=== PATIENT | male | born 1955 | race Caucasian/White ===

== ENCOUNTER 2017-05-10 20:10 | Inpatient (IN) | payer MEDICARE ==
[~2017-05-10] VITALS: Ht 167.6 cm; Wt 76.6 kg
--- NOTE | ~2017-05-10 | OP ---
PATIENT NAME: MEHUL AZEVEDO MEDICAL RECORD: [id number] :59 LOCATION:D.M2 D.2122 ADMISSION DATE:05/10/17 SURGEON: ALFA PLUNKETT MD DATE OF OPERATION: 05/13/2017 PROCEDURES: 1. PTCA stent LAD. 2. Intravascular ultrasound of the LAD. 3. Left heart catheterization. 4. Selective coronary angiography. 5. Left ventriculogram. INDICATION: Non-Q-wave myocardial infarction, angina. PROCEDURE IN DETAIL: After informed consent was obtained and after detailed explanation of risks, benefits as well as alternative therapies, the patient elected to proceed with angiogram and angioplasty. The right femoral area was prepped and draped in normal sterile fashion. The right femoral artery was cannulated via modified Seldinger technique with placement of 6-Portuguese sheath. All catheters exchanged through this sheath. FINDINGS: The left ventriculogram was performed in standard 30-degree DENIS view, reveals good cardiac wall motion throughout all segments. Overall ejection fraction estimated at 55%. SELECTIVE CORONARY ANGIOGRAPHY: 1. Left main showed no significant angiographic disease. 2. Left anterior descending has 65% to 70% stenosis confirmed by intravascular ultrasound. 3. The left circumflex has moderate irregularities, but no flow-limiting stenosis. 4. The right coronary has a 70% to 80% stenosis in the distal vessel. PTCA STENT OF THE LAD: The stent used is a 3.5 x 18 mm Integrity. Result was 0% residual stenosis. OVERALL IMPRESSION: Successful percutaneous transluminal coronary angioplasty stent of the left anterior descending going from 65% to 70% initial stenosis to 0% residual stenosis. Plan for PTCA stent of the RCA in the near future. TRANSINT:[id number] Voice Confirmation ID: [id number] DOCUMENT ID: [id number] ALFA PLUNKETT MD CC: [id number] DICTATION DATE: 05/13/1724 SUPERINTENDENT LAUNDRY: 05/13/17 1144 ADM IN [id number] [place] [address]
--- NOTE | ~2017-05-10 | HEMODYNAMI ---
PATIENT:MEHUL AZEVEDO MEDICAL RECORD: [id number] : 59 [id number] ADMISSION DATE: 05/10/17 Generatedon:05/13/20179:27 Patient name: MEHUL AZEVEDO Patient #: [id number] SSN: : 1955 Date of study: 05/13/2017 Page: Of Hemodynamic Procedure Report Patient Data Patient Demographics Procedure consent was obtained First Name: MEHUL Gender: Male Last Name: JOLLY : 1955 [facility] Initial: POLA Age: 62 year(s) Patient #: [id number] Race: Unknown Additional ID: [id number] Contact details Address: [address] [place] [address] State: [place] City: [facility] Zip code: [address] Admission Admission Data Admission Date: 05/10/2017 Admission Time: 23:05 Room #: 2122 Lab Results Lab Result Date: 05/13/2017 Lab Result Time: 0:00 Biochemistry Name Units Result Min Max BUN mg/dl 40 --(----)-* 7 18 Creatinine mg/dl 5.7 --(----)-* 0.6 1.3 CBC Name Units Result Min Max Hemoglobin g/dl 9 *-(----)-- 13.5 17.5 Procedure Procedure Types Cath Procedure Diagnostic Procedure [facility] w/Coronaries FFR/IVUS Intra-Coronary IVUS Initial PCI Procedure Coronary Stent Initial Miscellaneous Procedures Moderate Sedation up to 30 minutes Peripheral Cath Diagnostic Procedure Cath Peripheral Mlhbl-Bcbkjfw-Aik-Off Procedure Description Procedure Date Procedure Date: 05/13/2017 Procedure Start Time: 9:04 Procedure End Time: 9:23 Procedure Staff Name Function Freddy Tobar MD Performing Physician Allyson Chavez RT Scrub Román Pierre RN Nurse Latia Avelar RT Monitor Procedure Data Cath Procedure Fluoroscopy Diagnostic fluoroscopy Total fluoroscopy Time: 3.1 time: 3.1 min min Diagnostic fluoroscopy Total fluoroscopy dose: 659 dose: 659 mGy mGy Contrast Material Contrast Material Type Amount (ml) Isovue 300 115 Entry Location Entry Primary Successful Side Size Upsize Upsize Entry Closure Succes sful Closure Location (Fr) 1 (Fr) 2 (Fr) Remarks Device Remarks Femoral Right 5 Fr 6 Fr Exoseal artery Short Estimated blood loss: 5 ml Diagnostic catheters Device Type Used For End Catheter Placement Cordis 5Fr 3DRC Catheter Multi-vessel (MP) Angiography Cordis 5Fr JL 4.0 Left Coronary Catheter (MP) Angiography Cordis 5Fr Pigtail LV Angiography Catheter (MP) Procedure Complications No complications Procedure Medications Medication Administration Route Dosage Oxygen NC 2 l/min Lidocaine 2% added to field 20 Heparin Flush Bag added to field 2 bags (1000units/500ml NS) 0.9% NaCl I.V. Versed I.V. 1 mg Fentanyl I.V. 50 mcg Heparin Bolus I.V. 4000 units Integrilin (Bolus I.V. 6.8 ml 2mg/ml) Versed I.V. 1 mg Fentanyl I.V. 50 mcg Plavix P.O. 600 mg Hemodynamics Rest HGB: 9 (g/dl) Heart Rate: 61 (bpm) Snapshots Pre Cath Intra NCS Post Cath Vital Signs Time Heart Resp SPO2 NIBP (mmHg) Rhythm Pain Sedation Rate (ipm) (%) Status Level (bpm) 8:38:42 60 14 96 129/108(120) NSR 0 (11) 10(A) , No pain 8:43:41 58 14 100 Measuring NSR 0 (11) 10(A) , No pain 8:43:47 79 15 99 161/141(142) NSR 0 (11) 10(A) , No pain 8:48:42 60 13 98 Disturbed NSR 0 (11) 10(A) , No pain 8:58:50 62 12 99 142/98(0) NSR 0 (11) 10(A) , No pain 9:01:11 59 18 99 Disturbed NSR 0 (11) 9(A) , No pain 9:05:30 57 17 98 124/88(105) NSR 0 (11) 9(A) , No pain 9:09:52 67 14 99 106/52(58) NSR 0 (11) 9(A) , No pain 9:14:51 62 16 97 148/67(0) NSR 0 (11) 9(A) , No pain 9:16:15 64 15 98 153/69(0) NSR 0 (11) 10(A) , No pain 9:22:30 63 16 98 135/66(91) NSR 0 (11) 10(A) , No pain Medications Time Medication Route Dose Verified Delivered Reason Notes Effectiveness by by 8:45:28 Oxygen NC 2 Freddy France used for l/min Amadou Pierre RN procedure 8:45:35 Lidocaine 2% added 20ml Freddy Hayes for local to vial Amadou Tobar MD anesthetic field 8:45:41 Heparin Flush added 2 Freddy Freddy used for Bag to bags Amadou Tobar MD procedure (1000units/500ml field NS) 8:45:50 0.9% NaCl I.V. kvo Freddy France Per physician ml/hr Amadou Pierre RN 8:55:47 Versed I.V. 1 mg Freddy France for sedation Amadou Pierre RN 8:55:54 Fentanyl I.V. 50 Freddy France for sedation mcg Amadou Pierre RN 9:02:32 Versed I.V. 1 mg Freddy France for sedation Amadou Pierre RN 9:02:35 Fentanyl I.V. 50 Freddy France for sedation mcg Amadou Pierre RN 9:11:02 Heparin Bolus I.V. 4000 Freddy France for verifie d units Amadou Pierre RN anticoagulation with dr tobar 9:13:12 Integrilin I.V. 6.8 Freddy France for wasted (Bolus 2mg/ml) ml Amadou Pierre RN antiplatelet 3.2 ml therapy of vial 9:23:28 Plavix P.O. 600 Freddy France for mg Amadou Pierre RN antiplatelet therapy Procedure Log Time Note 8:15:00 Román Pierre RN sent for patient. Start room use. 8:28:40 Informed consent obtained and on chart 8:29:02 Time tracking: Regular hours 8:29:06 Plan of Care:Hemodynamics will remain stable., Cardiac rhythm will remain stable., Comfort level will be maintained., Respiratory function will remain adequate., Patient/ family verbilizes understanding of procedure., Procedure tolerated without complication., Recovers from procedure without complications.. 8:29:33 Patient received from Med II to [facility] 2 Alert and oriented. Tansferred to table in Supine position. 8:29:34 Warm blankets applied, and yohana hugger turned on for patient comfort. 8:29:35 Correct patient and procedure confirmed by team. 8:29:36 ECG and BP/O2 sat monitors applied to patient. 8:37:48 Vital chart was started 8:37:51 Baseline sample Acquired. 8:37:54 Rhythm: sinus rhythm 8:37:56 Full Disclosure recording started 8:38:03 H&P Date Dictated: 05/13/2017 New H&P dictated by physician.. 8:38:05 Pre-procedure instructions explained to patient. 8:38:05 Pre-op teaching completed and patient verbalized understanding. 8:38:06 Family in waiting room. 8:38:11 Patient NPO since Midnight. 8:38:22 Is the patient allergic to Iodine/contrast media? No. 8:38:23 Was the patient premedicated? No 8:41:43 Is patient on blood thinner?No 8:41:45 Patient diabetic? No. 8:41:48 Previous problem with sedation/anesthesia? No ? 8:41:50 Snore? Yes 8:41:51 Sleep apnea? No 8:41:52 Deviated septum? No 8:41:53 Opens mouth fully? Yes 8:41:54 Sticks out tongue? Yes 8:41:57 Airway obstruction? No ? 8:41:59 Dentures? No ? 8:42:04 Pre procedure: right dorsailis pedis pulse 1+ Palpable, but thready & weak; easily obliterated 8:42:07 Pre procedure: left dorsailis pedis pulse 1+ Palpable, but thready & weak; easily obliterated 8:42:11 Patient pain scale 0/10 ?. 8:44:18 IV patent on arrival in right forearm with 0.9% NaCl at KVO. 8:45:28 Oxygen 2 l/min NC was administered by Román Pierre RN; used for procedure; 8:45:35 Lidocaine 2% 20ml vial added to field was administered by Freddy Tobar MD; for local anesthetic; 8:45:41 Heparin Flush Bag (1000units/500ml NS) 2 bags added to field was administered by Freddy Tobar MD; used for procedure; 8:45:50 0.9% NaCl kvo ml/hr I.V. was administered by Román Pierre RN; Per physician; 8:46:01 Lab Result : Creatinine 5.7 mg/dl 8:46:01 Lab Result : BUN 40 mg/dl 8:46:01 Lab Result : Hemoglobin 9 g/dl 8:46:05 Lab results completed and on chart. 8:46:09 Right groin area was prepped with chlora-prep and draped in sterile fashion 8:46:10 Alarms reviewed by R. N. 8:46:10 Sharps counted by scrub and verified by R.N. 8:55:00 Zero performed for pressure channel P1 8:55:11 Physician arrived 8:55:12 --------ALL STOP TIME OUT------ 8:55:12 Final Timeout: patient, procedure, and site verified with staff and physician. All members of the team are in agreement. 8:55:14 Right groin site verified by team. 8:55:17 Physical assessment completed. ASA score P 2 - A patient with mild systemic disease as per Freddy Tobar MD. 8:55:20 Sedation plan: IV Moderate Sedation Versed, Fentanyl 8:55:27 Use device set Femoral Dx 8:55:28 Acist Syringe opened to sterile field. 8:55:28 Bag Decanter opened to sterile field. 8:55:28 Medline Cath Pack opened to sterile field. 8:55:29 Terumo 5Fr [facility] Sheath opened to sterile field. 8:55:29 St Randal 260cm J .035 wire opened to sterile field. 8:55:30 Acist Hand Control opened to sterile field. 8:55:31 Acist Manifold opened to sterile field. 8:55:31 Diagnostic Infinity 5Fr Multipack catheter opened to sterile field. 8:55:32 Tegaderm 4 x 4 opened to sterile field. 8:55:47 Versed 1 mg I.V. was administered by Román Pierre RN; for sedation; 8:55:54 Fentanyl 50 mcg I.V. was administered by Román Pierre RN; for sedation; 9:02:32 Versed 1 mg I.V. was administered by Román Pierre RN; for sedation; 9:02:35 Fentanyl 50 mcg I.V. was administered by Román Pierre RN; for sedation; 9:04:04 Procedure started. 9:04:07 Local anesthetic to right femoral artery with Lidocaine 2% by Freddy Tobar MD.INITIAL ACCESS ONLY 9:04:17 A 5 Fr sheath was inserted into the Right Femoral artery 9:05:17 A Cordis 5Fr 3DRC Catheter (MP) was advanced over the wire and used for Multi-vessel Angiography. 9:06:16 RCA angiography performed. 9:06:20 Injector settings: Ml/sec: 3, Volume: 6, 9:07:11 Catheter removed. 9:07:16 A Cordis 5Fr JL 4.0 Catheter (MP) was advanced over the wire and used for Left Coronary Angiography. 9:07:55 LCA angiography performed. 9:07:57 Injector settings: Ml/sec: 3, Volume: 6, 9:08:14 Terumo 6Fr [facility] Sheath opened to sterile field. 9:08:15 [place] [employer] BasixCompak Inflation Kit opened to sterile field. 9:08:51 [place] [employer] [place] Eag[place] IVUS Catheter opened to sterile field. 9:09:05 Iqbal Whisper J 300cm 0.014 guide wire opened to sterile field. 9:09:06 A Cordis 5Fr Pigtail Catheter (MP) was advanced over the wire and used for LV Angiography. 9:09:28 LV gram done using DENIS 9:09:31 Injector settings: Ml/sec: 5, Volume: 15, 9:09:37 EF : 60 % 9:10:11 Abdominal angiogram w/ runoff was performed. 9:10:37 Catheter removed. 9:10:39 Proceeding to intervention. 9:10:47 Sheath upsized to a 6 Fr Short. 9:11:02 Heparin Bolus 4000 units I.V. was administered by Román Pierre RN; for anticoagulation; verified with dr tobar 9:11:49 Cordis 6FR XBLAD 3.5 guide catheter opened to sterile field. 9:12:27 6 Fr xblad 3.5 guide catheter was inserted over the wire 9:12:31 whisper wire advanced. 9:12:54 Wire advanced across lesion. 9:13:12 Integrilin (Bolus 2mg/ml) 6.8 ml I.V. was administered by Román Pierre RN; for antiplatelet therapy; wasted 3.2 ml of vial 9:13:54 IVUS catheter advanced over wire. 9:14:46 IVUS pass to LAD lesion performed. 9:16:41 IVUS catheter removed over wire. 9:18:06 The Phoenix OTW 3.5 x 18 stent was advanced then removed because of failure to cross lesion 9:19:48 Inflation Number: 1 A Medtronic Integrity 3.5 X 18 stent was prepped and advanced across the Prox LAD. The stent was deployed at 17 DIANA for 0:10 (min:sec). 9:20:40 Stent catheter was removed intact over wire. 9:20:40 Wire removed. 9:20:40 Guide catheter removed. 9:21:26 Cordis 6Fr Exoseal opened to sterile field. 9:21:36 Sheath removed intact; hemostasis achieved with Exoseal to the Right Femoral artery. 9:21:38 Procedure ended.(Physican Out) 9:21:56 Fluoroscopy time 03.10 minutes. 9:22:00 Fluoroscopy dose: 659 mGy 9:22:00 Flurop Dose total: 659 9:22:11 Contrast amount:Isovue 300 115ml. 9:22:12 Sharps counted by scrub and verified by R.N. 9:22:13 Insertion/operative site no bleeding no hematoma. 9:22:16 Post-op/insertion site Right Femoral artery dressed using a 4 x 4 and Tegaderm. 9:22:18 Post right femoral artery:stable 9:22:20 Post Procedure Pulses reassessed and unchanged 9:22:22 Post procedure rhythm: unchanged. 9:22:25 Estimated blood loss: 5 ml 9:22:26 Post procedure instruction explained to patient.Patient verbalizes understanding. 9:22:27 Patient needs reinforcement of post procedure teaching. 9:23:28 Plavix 600 mg P.O. was administered by Román Pierre RN; for antiplatelet therapy; 9:23:33 Procedure type changed to Cath procedure, Diagnostic procedure, LHC, LHC w/Coronaries, FFR/IVUS, Intra-Coronary IVUS Initial, PCI procedure, Coronary Stent Initial, Miscellaneous Procedures, Moderate Sedation up to 30 minutes, Peripheral Cath Diagnostic Procedure, Cath Peripheral, Moqea-Ribchoj-Czl-Off 9:23:34 Procedure and supply charges have been captured, reviewed, submitted and are correct. 9::38 Procedure Complication : No complications 9:23:40 Vital chart was stopped 9:23:41 See physician's report for complete and final results. 9:23:43 Report given to [facility]. 9:23:45 Patient transfered to [facility] with Stretcher. 9:23:47 Procedure ended. 9:23:47 Full Disclosure recording stopped 9:23:53 ACC-PCI Only Patient was given prescriptions, or instructed by Freddy Tobar MD to start/continue the following medications upon discharge: Plavix 9:23:54 End room use (Document Last) Intervention Summary Intervention Notes Time ActionType Lesion and Equipment Action# Pressure Duration Attributes Used 9:18:06 Discard Phoenix OTW Stent 3.5 x 18 stent 9:19:[address] stent Prox LAD Medtronic 1 17 00:10 Integrity 3.5 X 18 stent Device Usage Item Name Manufacture Quantity Catalog Hospital Part Current Minima l Lot# / Number Charge Number Stock Stock Serial# Code Acist Acist 1 18196 [id number] 871770 252215 20 Syringe Medical Systems Inc Bag Microtek 1 2002S 097967 33748 637824 5 [place] [employer] (PIR[employer]. Medline Cardinal 1 [id number] 730188 53141 952604 5 Cath Pack Health Terumo 5Fr Terumo 1 [id number] 612290 994850 675707 [address] St Randal 1 912170 527581 366201 030144 30 260cm J .035 wire Acist Hand Acist 1 73557 196546 241472 505821 5 Control Medical Systems Inc Acist Acist 1 28723 512092 097990 916898 5 SaaSAssurance Medical Systems Inc Diagnostic Cardinal 1 [id number] 765954 69349 275752 30 Infinity Health 5Fr Multipack catheter Tegaderm 4 3M 1 1626W 298147 561579 483358 5 x 4 Cordis 5Fr Cardinal 1 006655 5 3DRC Health Catheter (MP) Cordis 5Fr Cardinal 1 127718 5 JL 4.0 Health Catheter (MP) Terumo 6Fr Terumo 1 [id number] 169858 250370 025402 40 [facility] Sheath Merit Merit 1 [id number] 751982 783020 032762 15 Social Media Simplified Medical Inflation Kit [place] 1 96989J 877841 710810 042635 8 [employer] [place] [place] IVUS Catheter Iqbal Iqbal 1 [id number] 649074 207071 582831 5 Whisper J Vascular 300cm 0.014 guide wire Cordis 5Fr Cardinal 1 335008 5 Pigtail Health Catheter (MP) Cordis 6FR Cardinal 1 [id number] 550938 196913 211452 10 XBLAD 3.5 Health guide catheter Derrek OTW Medtronic 1 [id number] 394559 1586399 425115 5 [id number] 3.5 x 18 stent Medtronic Medtronic 1 [id number] 982070 165218 9 [id number] Integrity 3.5 X 18 stent Cordis 6Fr Cardinal 1 EX600 589916 122208 311193 10 [facility] ECO-SAFE Signature Audit [place] Stage Time Signature Unsigned Intra-Procedure 05/13/2017 Latia Avelar 9:27:16 AM RT(R) Signatures Monitor : Latia Avelar RT Signature : Date : Time : [id number] [place] [address]
--- NOTE | ~2017-05-10 | OP ---
PATIENT NAME: MEHUL AZEVEDO MEDICAL RECORD: [id number] :59 LOCATION:D.M2 D.2122 ADMISSION DATE:05/10/17 SURGEON: ALFA PLUNKETT MD DATE OF OPERATION: 05/13/2017 PROCEDURES: 1. Aortofemoral runoff. 2. Abdominal aortography. INDICATION: Claudication and peripheral vascular disease. PROCEDURE IN DETAIL: After informed consent was obtained and after detailed explanation of risks, benefits as well as alternative therapies, the patient elected to proceed with angiogram. The right femoral area was prepped and draped in normal sterile fashion. The right femoral artery was cannulated via modified Seldinger technique with placement of 6-Persian sheath. All catheters exchanged through this sheath. FINDINGS: Abdominal aortography was performed. The catheter was pulled down for aortofemoral runoff. Abdominal aortography reveals no significant abdominal aortic disease. No dissection or aneurysm formation. No renal artery stenosis. RIGHT LEG: A. Iliac: The common internal and external iliacs have moderate irregularities, heavy calcification, but no flow-limiting stenosis. B. Femoral system: The common superficial and deep femoral have heavy calcification, multiple areas of 80+ percent stenosis. C. Popliteal and infrapopliteal vessels are preserved. There is patent 3-vessel runoff to the foot, although diffusely diseased. LEFT LEG: A. Iliac: The common internal and external iliacs have moderate irregularities, heavy calcification, but no flow-limiting stenosis. B. Femoral system: The common superficial and deep femoral have heavy calcification, multiple areas of 80+ percent stenosis. C. Popliteal and infrapopliteal vessels are preserved. There is patent 3-vessel runoff to the foot, although diffusely diseased. OVERALL IMPRESSION: Multiple areas of stenosis throughout the mid to distal SFA that is amenable to transcatheter revascularization in the future. TRANSINT:[id number] Voice Confirmation ID: [id number] DOCUMENT ID: [id number] ALFA PLUNKETT MD CC: [id number] DICTATION DATE: 05/13/17 1026 HISTORIOGRAPHY TEACHER: 05/13/17 1213 ADM IN [facility] [address] [id number]
[~2017-05-10 20:10] MED LIST: CATAPRES0.3 MG PO; COZAAR25 MG PO; FERROUS SULFAT325 MG PO; FLAGYL500 MG PO; LIPITOR20 MG PO; LIPOFEN50 MG PO; LOPRESSOR25 MG PO; NORVASC5 MG PO; PEPCID40 MG PO; PHOSLO667 MG PO; PRILOSEC20 MG PO; REGLAN10 MG PO; ROCALTROL0.25 MCG PO; TOPROL XL25 MG PO; VANCOMYCIN250 MG/51 PO; VITAMIN B-121000 MCG PO; ZOFRAN4 MG PO
[2017-05-10 21:00] LABS: BASOPHILS 0.3 % (0-2); HEMATOCRIT 21.2 % (42.0-54.0); IMMATURE GRANULOCYTES 0.4 % (0-5); LYMPHOCYTES 15.3 % (15-50); MCH 30.2 pg (26.0-34.0); MCHC 30.2 g/dL (31.0-37.0); MEAN PLATELET VOLUME 11.5 fL (7.4-10.4); MONOCYTES 4.8 % (2-11); NEUTROPHILS 78.2 % (40-80); RBC 2.12 10x6/uL (4.20-6.10); RDW 14.7 % (11.5-14.5); WBC 6.8 10x3/uL (4.8-10.8)
[2017-05-10 21:24] LABS: ALBUMIN 2.4 g/dL (3.4-5.0); ALKALINE PHOSPHATASE 93 U/L (46-116); ALT (SGPT) 18 U/L (10-68); CALC OSMOLALITY 287 mosm/kg (275-300); CALCIUM 8.3 mg/dL (8.5-10.1); CARBON DIOXIDE 29.9 mmol/L (21.0-32.0); CHLORIDE - SERUM 100 mmol/L (98-107); CREATININE - SERUM 5.4 mg/dL (0.6-1.3); GLUCOSE 100 mg/dL (74-106); POTASSIUM - SERUM 4.3 mmol/L (3.5-5.1); PROTEIN - SERUM 6.8 g/dL (6.4-8.2); SODIUM 139 mmol/L (136-145); UREA NITROGEN 40 mg/dL (7-18); eGFR NON AFRICAN AMERICAN 11 mL/min (90-120)
[2017-05-10 21:25] LABS: HEMOGLOBIN 6.4 g/dL (13.5-17.5); PLATELET COUNT 43 10x3/uL (130-400)
[2017-05-10 21:39] LABS: CHOL - HDL RATIO 3.9 ratio (2.3-4.9); CHOLESTEROL, TOTAL 116 mg/dL (0-200); CKMB 1.6 U/L (0.0-3.6); CREATINE KINASE 67 UL (21-232); HDL CHOLESTEROL 30 mg/dL (32-96); LDL CHOLESTEROL 61 mg/dL (0-100); TRIGLYCERIDE 129 mg/dL (30-200)
[2017-05-10 21:41] LABS: TROPONIN-I < 0.017 ng/mL (0.000-0.060)
[2017-05-10 22:01] LABS: PLATELET ESTIMATE DECREASED
--- NOTE | 2017-05-10 23:53 | NUR ---
REPORT RECEIVED FROM SARAY BEATTY IN ER. PT IS TO GET 2 UNITS PACKED RED BLOOD CELLS WITH PLT IN BETWEEN. SARAY SAYS HE WILL START 1ST UNIT BEFORE BRINGING PT UP TO ROOM 2121. PT IS A LEFT ARM RESERVE WILL GET SIGNS FOR ABOVE BED AND PREP ROOM.
[2017-05-11] VITALS: BP 149/72
--- NOTE | 2017-05-11 01:01 | NUR ---
PT ARRIVED VIA [facility]3]. PT MOVED TO BED ON OWN. PT NOW LAYING ON LEFT SIDE. RESERVE LEFT ARM SIGN ABOVE BED. PT AAO X4. BLOOD INFUSING INTO RIGHT AC. 20G. PT DENIES ANY TENDERNESS OR PAIN IN THAT AREA. PT DENIES ANY NEEDS. NO S/S OF DISTRESS. WILL CPOC
--- NOTE | 2017-05-11 01:12 | NUR ---
PT RECEIVING PRBC. BP 128/55 NO ABNORMAL VITALS. PT DENIES ANY DISCOMFORT. WILL CPOC
[2017-05-11 03:21] VITALS: BP 128/55; BMI 26.7
[2017-05-11 04:37] VITALS: BP 140/69
--- NOTE | 2017-05-11 07:20 | NUR ---
ASSESSMENT DONE. DENIES NEEDS.
--- NOTE | 2017-05-11 08:00 | NUR ---
PT RESTING IN BED. PLATLETS STARTED INFUSING TO RIGHT AC IV. PRE VITALS WERE 118/54 VITALS AFTER PLT STARTED ARE 119/78. pt denies any pain or discomfort. pt sitting up in bed eating breakfast. pt now under morro the dayshift nurses care. no s/s of distress. will cpoc
[2017-05-11] MEDS ORDERED: LOMOTIL TABLET1 TAB PO (08:20)
[2017-05-11] MEDS ORDERED: REGLAN10 MG PO (08:24)
[2017-05-11] MEDS ORDERED: FENOFIBRATE160 MG PO (08:25)
[2017-05-11 08:42] VITALS: BP 147/78
[2017-05-11 12:40] VITALS: BP 138/72
[2017-05-11 12:41] VITALS: Ht 167.6 cm; Wt 76.6 kg
--- NOTE | 2017-05-11 15:57 | NUR ---
EARLIER 1 UNIT OF BLOOD STARTED ON PT. UNIT IS COMPLETED WITHOUT ANY ISSUES. WILL CONTINUE TO MONITOR.
--- NOTE | 2017-05-11 16:17 | NUR ---
ALERT AND ORIENTED X4. RESTING IN BED. FAMILY AT BEDSIDE. DENIES ANY NEEDS. AMBULATES IN ROOM. GAIT STEADY. WEARS SCDs AT NIGHT WHILE IN BED. RAGHU SANTOS RESUME PLAN OF CARE. CONTINUE SAFETY PRECAUTIONS.
--- NOTE | 2017-05-11 17:52 | NUR ---
WITHOUT CHANGES OR DISTRESS NOTED AT THIS TIME. DENIES NEEDS.
--- NOTE | 2017-05-11 19:46 | NUR ---
ASSESSMENT COMPLETE, A&O. PT IN BED RESTING ON LEFT SIDE. IV TO RIGHT AC SL. SITE CLEAN AND DRY. RESERVE LEFT ARM SIGNS NOTED ABOVE PTS BED AND ON OUT SIDE OF DOOR. PT DENIES PAIN OR NEEDS, BED LOW, CL IN REACH.
[2017-05-11 20:00] VITALS: BP 170/83
--- NOTE | 2017-05-11 20:00 | NUR ---
VITALS OBTAINED BY NURSE, VITALS SIGNS STABLE.
--- NOTE | 2017-05-11 21:01 | NUR ---
HS MEDS GIVEN WITH FRESH ICE WATER, PT DENIES PAIN OR NEEDS, BED LOW, CL IN REACH.
--- NOTE | 2017-05-11 21:50 | NUR ---
VITALS OBTAIN BY NURSE, VITAL SIGNS STABLE.
[2017-05-12] VITALS: BP 112/61
--- NOTE | 2017-05-12 00:20 | NUR ---
NON GARMENT SEWING MACHINE OPERATOR AT BEDSIDE TO OBTAIN VITALS, CALL LIGHT IN REACH. WILL CONTINUE TO MONITOR.
--- NOTE | 2017-05-12 03:23 | NUR ---
RESTING WITH EYES CLOSED, RESPERATIONS EVEN, NO S/S DISTRESS NOTED.
[2017-05-12 04:00] VITALS: BP 144/65
[2017-05-12 06:15] LABS: BASOPHILS 0.3 % (0-2); EOSINOPHILS 1.5 % (0-7); HEMATOCRIT 24.8 % (42.0-54.0); IMMATURE GRANULOCYTES 0.8 % (0-5); LYMPHOCYTES 13.5 % (15-50); MCH 29.5 pg (26.0-34.0); MCHC 31.5 g/dL (31.0-37.0); MEAN PLATELET VOLUME 10.4 fL (7.4-10.4); MONOCYTES 6.5 % (2-11); NEUTROPHILS 77.4 % (40-80); RDW 17.5 % (11.5-14.5); WBC 7.4 10x3/uL (4.8-10.8)
[2017-05-12 06:17] LABS: HEMOGLOBIN 7.8 g/dL (13.5-17.5); MCV 93.9 fL (80.0-100.0); PLATELET COUNT 67 10x3/uL (130-400); RBC 2.64 10x6/uL (4.20-6.10)
[2017-05-12 06:58] LABS: ALBUMIN 2.4 g/dL (3.4-5.0); ALKALINE PHOSPHATASE 83 U/L (46-116); ALT (SGPT) 19 U/L (10-68); BILIRUBIN - DIRECT 0.13 mg/dL (0.00-0.30); BILIRUBIN - INDIRECT 0.36 mg/dL (0.00-1.00); BILIRUBIN - TOTAL 0.49 mg/dL (0.2-1.3); CALCIUM 8.2 mg/dL (8.5-10.1); CARBON DIOXIDE 24.2 mmol/L (21.0-32.0); CHLORIDE - SERUM 103 mmol/L (98-107); CKMB 1.7 U/L (0.0-3.6); CREATINE KINASE 79 UL (21-232); GLUCOSE 78 mg/dL (74-106); MAGNESIUM - SERUM 2.3 mg/dL (1.8-2.4); PHOSPHOROUS 7.4 mg/dL (2.5-4.9); POTASSIUM - SERUM 4.9 mmol/L (3.5-5.1); PROTEIN - SERUM 6.4 g/dL (6.4-8.2); SODIUM 138 mmol/L (136-145)
[2017-05-12 07:00] LABS: CALC OSMOLALITY 293 mosm/kg (275-300); CREATININE - SERUM 8.2 mg/dL (0.6-1.3); TROPONIN-I < 0.017 ng/mL (0.000-0.060); UREA NITROGEN 66 mg/dL (7-18); eGFR NON AFRICAN AMERICAN 7 mL/min (90-120)
--- NOTE | 2017-05-12 07:15 | NUR ---
RESTING QUIETLY RESP UNLABORED DENIES ANY NEEDS OR DISCOMFORT
--- NOTE | 2017-05-12 07:45 | NUR ---
ASSESSMENT COMPLETED. TELEMERTY SHOWS SR. LEFT AC SL. LEFT AV FISTULA NOTED. DENIES ANY PAIN OR OTHER NEEDS. CALL LIGHT IN REACH WITH SR UP. WILL MONITOR
[2017-05-12 07:47] VITALS: BP 149/69
[2017-05-12 11:42] VITALS: BP 151/66
--- NOTE | 2017-05-12 12:22 | CN ---
PATIENT NAME:MEHUL AZEVEDO MEDICAL RECORD: [id number] : 59 LOCATION:. D.2122 ADMIT DATE: 05/10/17 ACCOUNT: [id number] CONSULTING PHYSICIAN: ALFA PLUNKETT MD REFERRING PHYSICIAN: ETHAN MIRELES MD DATE OF CONSULTATION: 05/11/2017 Cardiology Consultation DIAGNOSES: 1. Angina. 2. Anemia, hemoglobin 6.4. 3. End-stage renal failure on dialysis. 4. Shortness of breath, dyspnea on exertion. 5. Hypertension. 6. Gastroesophageal reflux disease. HISTORY OF PRESENT ILLNESS: Mr. Azevedo has been having increasing episodes of chest pain, chest discomfort compatible with angina worsened today. He presents to the Emergency Room. He has EKG changes laterally compatible with ischemia; however, his hemoglobin is 6.4. He does home hemodialysis. His has been having trouble with the machine and he has had significant blood loss just with the machine. His Procrit has been increased when his hemoglobin was in the 7 range; however, it has continued to drop. PHYSICAL EXAMINATION: GENERAL APPEARANCE: Well-nourished, well-developed, appears stated age. Level of distress, comfortable. PSYCHIATRIC: Mental status, alert, normal affect. Orientation, oriented to time, place and person. EYES: Lids and conjunctiva, noninjected. No discharge, no pallor. ENT: Lips, teeth, gums, normal dentition. Oropharynx, no cyanosis, no pallor. NECK: Carotid arteries, bilateral normal upstroke, no bruits, no thrills. JUGULAR VEINS: No jugular venous pressure or distention. CERVICAL LYMPH NODES: Nontender, nonenlarged. THYROID: Not enlarged. Nontender. No nodules. LUNGS: Respiratory effort, unlabored. CHEST: Normal curvature. No thoracic deformity. No chest wall tenderness. Percussion, resonant. Auscultation, clear. No wheezes, no rales, no rhonchi. CARDIOVASCULAR: Precordial exam, nondisplaced. No heaves or pericardial thrills. Rate and rhythm, regular. Heart sounds, normal S1, normal S2. No S3, no gallop, no rub. Systolic murmur, not heard. Diastolic murmur, not heard. EXTREMITIES: No cyanosis, no edema. Peripheral pulses, full and equal in all extremities, except as noted. No bruits appreciated. ABDOMEN: Soft, nondistended. Normal aorta. No bruit. Nontender. No masses. Liver, nontender, no hepatomegaly. Spleen, nontender, no splenomegaly. MUSCULOSKELETAL: No joint tenderness. No joint swelling. No erythema. NEUROLOGICAL: Normal gait, normal strength, normal tone. SKIN: Warm and dry. REVIEW OF SYSTEMS: The patient reports easy bruising but reports no swollen glands. The patient reports no fever, no night sweats, no significant weight gain, no significant weight loss. No significant exercise tolerance. The patient reports no dry eyes, no irritation, no vision change. Patient reports no difficulty hearing and no ear pain. Patient reports no frequent nose bleeds CONSULT REPORT [id number] GRAVES,MEHUL POLA or nose and sinus problems. Patient reports on arm pain on exertion. No shortness of breath while lying down. No history of heart murmur. Patient reports no cough, no wheezing or coughing up blood. Patient reports no abdominal pain, no vomiting. Normal appetite. No diarrhea and not vomiting blood. No nausea and no constipation. Patient reports no incontinence. No difficulty urinating. No hematuria. No increased frequency. Patient reports no muscle aches. No weakness, no arthralgias, no back pain. No swelling of the extremities. Patient reports no abnormal mole, no jaundice, no rashes. Reports no loss of consciousness. No weakness and no numbness. No seizures, dizziness, or headaches. The patient reports no depression, no sleep disturbance, feeling safe in a relationship and no alcohol abuse. Patient reports on fatigue. Reports no runny nose or sinus pressure. No itching, no hives, and no frequent sneezing. OVERALL IMPRESSION: Severe anemia. Obviously, this is the etiology of the chest pain; however, with the EKG changes, there very well may be hemodynamically significant coronary artery disease. We will let them stabilize hemoglobin and hematocrit at this point and look into the cardiac vessels after the hemoglobin and hematocrit have been stable. TRANSINT:[id number] Voice Confirmation ID: [id number] DOCUMENT ID: [id number] ALFA PLUNKETT MD at 1222 CC: [id number] DICTATION DATE: 05/11/17 0757 POLYSOMNOGRAPHIC TECHNICIAN: 05/11/17 0820 [facility] [place] [id number] [place] [address]
--- NOTE | 2017-05-12 16:00 | NUR ---
BACK FROM DIALYSIS. V/S STABLE. DENIES ANY NEEDS. CALL LIGHT IN REACH
--- NOTE | 2017-05-12 18:20 | NUR ---
LYING QUIETLY. DENIES ANY NEEDS. SR UP WITH CALL LIGHT IN REACH. WILL MONITOR
--- NOTE | 2017-05-12 19:50 | NUR ---
NURSE AT BED SIDE TO OBTAIN VITALS, VITAL SIGNS STABLE.
[2017-05-12 20:12] VITALS: BP 142/62
--- NOTE | 2017-05-12 21:10 | NUR ---
HS MEDS GIVEN WITH FRESH ICE WATER, DENIES PAIN OR NEEDS, BED LOW, CL IN REACH.
--- NOTE | 2017-05-13 01:22 | NUR ---
RESTING WITH EYES CLOSED, RESPERATIONS EVEN, NO S/S DISTRESS NOTED.
[2017-05-13 07:53] LABS: BASOPHILS 0.2 % (0-2); EOSINOPHILS 0.7 % (0-7); HEMATOCRIT 28.6 % (42.0-54.0); IMMATURE GRANULOCYTES 0.6 % (0-5); LYMPHOCYTES 10.6 % (15-50); MCHC 31.5 g/dL (31.0-37.0); MCV 92.3 fL (80.0-100.0); MEAN PLATELET VOLUME 10.5 fL (7.4-10.4); MONOCYTES 8.2 % (2-11); NEUTROPHILS 79.7 % (40-80); PLATELET COUNT 74 10x3/uL (130-400); RDW 18.3 % (11.5-14.5); WBC 8.9 10x3/uL (4.8-10.8)
--- NOTE | 2017-05-13 08:00 | NUR ---
ASSESSMENT COMPLETED. AWAKE AND ALERT. TELEMERTY SHOWS SR. LEFT AVF. SR UP WITH CALL LIGHT IN REACH. FAMILY AT BEDSIDE. FOR CATH TODAY
[2017-05-13 08:02] LABS: ANION GAP 13.5 mmol/L (8-16); CALCIUM 8.3 mg/dL (8.5-10.1); CARBON DIOXIDE 27.1 mmol/L (21.0-32.0); POTASSIUM - SERUM 4.6 mmol/L (3.5-5.1)
[2017-05-13 08:03] LABS: CREATININE - SERUM 5.7 mg/dL (0.6-1.3)
--- NOTE | 2017-05-13 08:32 | NUR ---
TO RENOVATION PLANT SUPERVISOR PER BED
[2017-05-13 08:57] VITALS: BP 160/71
--- NOTE | 2017-05-13 09:59 | NUR ---
BACK FROM QC SCIENTIST.V/S STABLE.RIGHT GROIN SOFT WITH FEM STOP IN PLACE,TELEMERTY SHOWS SR. RESERVE LIGHT ARM. RIGHT AC SL. TELEMERTY SHOWS SR 68. PPP. WILL MONITOR
[2017-05-13] MEDS ORDERED: PLAVIX75 MG PO (10:29)
[2017-05-13] MEDS ORDERED: ASPIRIN81 MG PO (10:30)
[2017-05-13 11:17] LABS: HEPATITIS C ANTIBODY <0.1 (0.0-0.9)
[2017-05-13 12:12] VITALS: BP 152/75
--- NOTE | 2017-05-13 17:24 | NUR ---
PT DISCHARGED. TO PRIVATE CAR PER WHEELCHAIR
== END 2017-05-13 17:26 | disposition home or self-care (01) | DRG 248 ==
LOC: D.ER 20:10 → D.M2 23:05
PROVIDERS: Emergency Medicine; Internal Medicine Interventional Cardiology; Internal Medicine Nephrology; ADMIT Internal Medicine Nephrology
PROC: 4A023N7 Measurement of Cardiac Sampling and Pressure, Left Heart, Percutaneous Approach (ICD-10-PCS; 2017-05-13)
PROC: B2111ZZ Fluoroscopy of Multiple Coronary Arteries using Low Osmolar Contrast (ICD-10-PCS; 2017-05-13)
PROC: B2151ZZ Fluoroscopy of Left Heart using Low Osmolar Contrast (ICD-10-PCS; 2017-05-13)
PROC: B4101ZZ Fluoroscopy of Abdominal Aorta using Low Osmolar Contrast (ICD-10-PCS; 2017-05-13)
PROC: 02703DZ Dilation of Coronary Artery, One Artery with Intraluminal Device, Percutaneous Approach (ICD-10-PCS; principal; 2017-05-13 09:00)
DX: I21.4 Non-ST elevation (NSTEMI) myocardial infarction (principal); N18.6 End stage renal disease; I13.2 Hypertensive heart and chronic kidney disease with heart failure and with stage 5 chronic kidney disease, or end stage renal disease; D50.0 Iron deficiency anemia secondary to blood loss (chronic); I24.8 Other forms of acute ischemic heart disease; D63.1 Anemia in chronic kidney disease; I50.9 Heart failure, unspecified; Z99.2 Dependence on renal dialysis; K21.9 Gastro-esophageal reflux disease without esophagitis; I25.10 Atherosclerotic heart disease of native coronary artery without angina pectoris; K74.60 Unspecified cirrhosis of liver; D69.6 Thrombocytopenia, unspecified; I73.9 Peripheral vascular disease, unspecified; Z86.73 Personal history of transient ischemic attack (TIA), and cerebral infarction without residual deficits; Z72.0 Tobacco use

== ENCOUNTER → 2017-05-16 07:35 | Outpatient (CLI) | payer MEDICARE ==
[~2017-05-16] VITALS: Ht 167.6 cm; Wt 75.0 kg
--- NOTE | ~2017-05-16 | HEMODYNAMI ---
PATIENT:MEHUL AZEVEDO MEDICAL RECORD: [id number] : 59 LOCATION:DSUDHA ADMISSION DATE: 05/16/17 Generatedon:05/16/201710:29 Patient name: MEHUL AZEVEDO Patient #: [id number] SSN: : 1955 Date of study: 05/16/2017 Page: Of Hemodynamic Procedure Report Patient Data Patient Demographics Procedure consent was obtained First Name: MEHUL Gender: Male Last Name: JOLLY : 1955 [facility] Initial: POLA Age: 62 year(s) Patient #: [id number] Race: Unknown Additional ID: [id number] Contact details Address: [address] [place] [address] State: [place] City: [facility] Zip code: [address] Past Medical History Allergies: No known allergies Admission Admission Data Admission Date: 05/16/2017 Admission Time: 7:35 Lab Results Lab Result Date: 05/16/2017 Lab Result Time: 0:00 Biochemistry Name Units Result Min Max Creatinine mg/dl 8.8 --(----)-* 0.6 1.3 CBC Name Units Result Min Max Hemoglobin g/dl 9.6 *-(----)-- 13.5 17.5 Procedure Procedure Types Cath Procedure PCI Procedure Coronary Stent Initial Miscellaneous Procedures Moderate Sedation up to 30 minutes Procedure Description Procedure Date Procedure Date: 05/16/2017 Procedure Start Time: 10:06 Procedure End Time: 10:28 Procedure Staff Name Function Freddy Tobar MD Performing Physician Yakov Israel RN Nurse Allyson Chavez RT Monitor Omero Truong RT Scrub Wendy Will RT Scrub Procedure Data Cath Procedure Fluoroscopy Diagnostic fluoroscopy Total fluoroscopy Time: 7.7 time: 7.7 min min Diagnostic fluoroscopy Total fluoroscopy dose: 501 dose: 501 mGy mGy Contrast Material Contrast Material Type Amount (ml) Isovue 300 70 Entry Location Entry Primary Successful Side Size Upsize Upsize Entry Closure Succes sful Closure Location (Fr) 1 (Fr) 2 (Fr) Remarks Device Remarks Femoral Left 7 Fr Exoseal artery Short Estimated blood loss: 10 ml Procedure Complications No complications Procedure Medications Medication Administration Route Dosage 0.9% NaCl I.V. 100 ml/hr Oxygen NC 2 l/min Heparin Flush Bag added to field 2 bags (1000units/500ml NS) Lidocaine 2% added to field 20 Versed I.V. 1 mg Fentanyl I.V. 50 mcg Heparin Bolus I.V. 4000 units Hemodynamics Rest HGB: 9.6 (g/dl) Heart Rate: 68 (bpm) Snapshots Pre Cath Intra NCS Post Cath Vital Signs Time Heart Resp SPO2 etCO2 [id number] NIBP (mmHg) Rhythm Pain Sedation Rate (ipm) (%) (mmHg) (mmHg) Status Level (bpm) 9:59:24 65 16 100 0 0 163/85(132) NSR 0 (11) 10(A) , No pain 10:04:13 67 14 99 0 0 153/85(126) NSR 0 (11) 10(A) , No pain 10:08:58 65 12 99 0 0 140/75(125) NSR 0 (11) 9(A) , No pain 10:13:42 68 12 99 0 0 150/79(120) NSR 0 (11) 9(A) , No pain 10:18:27 70 16 100 0 0 151/74(114) NSR 0 (11) 9(A) , No pain 10:23:14 72 16 100 0 0 138/76(115) NSR 0 (11) 9(A) , No pain 10:27:57 69 9 100 0 0 152/86(126) NSR 0 (11) 9(A) , No pain Medications Time Medication Route Dose Verified Delivered Reason Notes Effectiveness by by 9:56:43 0.9% NaCl I.V. 100 Yakov Yakov Per physician ml/hr Jhonatan Israel RN RN 9:56:56 Oxygen NC 2 Yakov Yakov Per physician l/min Jhonatan Israel RN RN 9:57:20 Heparin Flush added 2 Yakov Yakov used for Bag to bags Jhonatan Israel procedure (1000units/500ml field BEATTY RN NS) 9:57:34 Lidocaine 2% added 20ml Yakov Yakov for local to vial Lorigan Jhonatan anesthetic field BEATTY RN 10:04:17 Versed I.V. 1 mg Yakov Yakov for sedation Jhonatan Israel RN, RN 10:04:30 Fentanyl I.V. 50 Yakov Yakov for sedation mcg Jhonatan Israel RN RN 10:08:59 Heparin Bolus I.V. 4000 Yakov Yakov for units Jhonatan Israel anticoagulation RN hotel casino floorperson Log Time Note 9:40:42 Allyson Counts RT(R) sent for patient. Start room use. 9:50:43 Time tracking: Regular hours 9:50:46 Plan of Care:Hemodynamics will remain stable., Cardiac rhythm will remain stable., Comfort level will be maintained., Respiratory function will remain adequate., Patient/ family verbilizes understanding of procedure., Procedure tolerated without complication., Recovers from procedure without complications.. 9:53:04 Patient received from Pre/Post Procedure Room to CCL 1 Alert and oriented. Tansferred to table in Supine position. 9:53:05 Warm blankets applied, and yohana hugger turned on for patient comfort. 9:53:05 Correct patient and procedure confirmed by team. 9:53:07 Signed procedure consent form obtained from patient. 9:53:07 ECG and BP/O2 sat monitors applied to patient. 9:56:43 0.9% NaCl 100 ml/hr I.V. was administered by Yakov Israel RN; Per physician; 9:56:56 Oxygen 2 l/min NC was administered by Yakov Israel RN; Per physician; 9:57:20 Heparin Flush Bag (1000units/500ml NS) 2 bags added to field was administered by Yakov Israel RN; used for procedure; 9:57:34 Lidocaine 2% 20ml vial added to field was administered by Yakov Israel RN; for local anesthetic; 9:58:21 Vital chart was started 10:00:17 Rhythm: sinus rhythm 10:00:18 Full Disclosure recording started 10:00:27 H&P Date Dictated: 05/13/2017 Within 30 days and on chart.. 10:00:28 Pre-procedure instructions explained to patient. 10:00:29 Pre-op teaching completed and patient verbalized understanding. 10:00:30 Family in waiting room. 10:00:32 Patient NPO since Midnight. 10:00:41 Patient allergic to No known allergies 10:00:43 Is the patient allergic to Iodine/contrast media? No. 10:00:44 Is patient on blood thinner?Yes 10:00:47 ACC The patient was administered the following blood thiners within the last 24 hours: ACCAspirin, ACCPlavix 10:00:49 Patient diabetic? No. 10:00:52 Previous problem with sedation/anesthesia? No ? 10:00:53 Snore? Yes 10:00:54 Sleep apnea? No 10:00:56 Deviated septum? No 10:00:56 Opens mouth fully? Yes 10:00:57 Sticks out tongue? Yes 10:00:58 Airway obstruction? No ? 10:01:00 Dentures? No ? 10:01:02 Pre procedure: left dorsailis pedis pulse 2+ Normal; easily identifiable; not easily obliterated 10:01:04 Patient pain scale 0/10 ?. 10:01:15 IV patent on arrival in right hand with 0.9% NaCl at O. 10:02:06 Lab Result : Creatinine 8.8 mg/dl 10:02:06 Lab Result : Hemoglobin 9.6 g/dl 10:02:09 Lab results completed and on chart. 10:02:12 Left groin area was prepped with chlora-prep and draped in sterile fashion 10:02:13 Alarms reviewed by R. N. 10:02:13 Sharps counted by scrub and verified by R.N. 10:02:17 Use device set Femoral PCI 10:02:18 Acist Syringe opened to sterile field. 10:02:18 Acist Hand Control opened to sterile field. 10:02:19 Bag Decanter opened to sterile field. 10:02:19 Medline Cath Pack opened to sterile field. 10:02:19 Terumo 6Fr [place] Sheath opened to sterile field. 10:02:20 St Randal 260cm J .035 wire opened to sterile field. 10:02:20 Merit BasixCompak Inflation Kit opened to sterile field. 10:02:20 Acist Manifold opened to sterile field. 10:02:21 Tegaderm 4 x 4 opened to sterile field. 10:03:43 Final Timeout: patient, procedure, and site verified with staff and physician. All members of the team are in agreement. 10:03:46 Left groin site verified by team. 10:03:52 Physical assessment completed. ASA score P 2 - A patient with mild systemic disease as per Freddy Tobar MD. 10:03:56 Sedation plan: IV Moderate Sedation Versed, Fentanyl 10:04:03 Baseline sample Acquired. 10:04:17 Versed 1 mg I.V. was administered by Yakov Israel RN; for sedation; 10:04:25 Iqbal Whisper J 300cm 0.014 guide wire opened to sterile field. 10:04:30 Fentanyl 50 mcg I.V. was administered by Yakov Israel RN; for sedation; 10:04:31 Medtronic Launcher 7Fr AR 2.0 guide catheter opened to sterile field. 10:06:27 Procedure started. 10:06:30 Local anesthetic to left femerol artery with Lidocaine 2% by Freddy Tobar MD.INITIAL ACCESS ONLY 10:06:33 Zero performed for pressure channel P1 10:07:07 A 7 Fr Short sheath was inserted into the Left Femoral artery 10:08:55 7 Fr AR 2.0 guide catheter was inserted over the wire 10:08:59 Heparin Bolus 4000 units I.V. was administered by Yakov Israel RN; for anticoagulation; 10:11:58 [place]ore Sci Choice PT Extra Support J 300cm .014 gu opened to sterile field. 10:12:06 Choice PT ES wire advanced. 10:12:15 Wire removed. damaged. 10:12:18 [place] Sci Choice PT Extra Support J 300cm .014 gu opened to sterile field. 10:12:31 New Choice PT ES wire advanced. 10:15:01 Whisper (Eyad Wire) wire advanced. 10:15:52 The [place] OTW 3.0 x 12 stent was advanced then removed because of failure to cross lesion 10:18:12 Inflation number: 1 A Mozec Rx 3.0 x 14 balloon was prepped and advanced across the Mid RCA, then inflated to 17 DIANA for 0:11 (min:sec). 10:18:36 Inflation number: 2 The Mozec Rx 3.0 x 14 balloon was reinflated across the Mid RCA, to 17 DIANA for 0:06 (min:sec). 10:19:01 Balloon removed over the wire. 10:21:03 Choice PT wire removed 10:22:32 Inflation Number: 3 A Derrek OTW 3.0 x 12 stent was prepped and advanced across the Mid RCA. The stent was deployed at 17 DIANA for 0:05 (min:sec). 10::47 Stent catheter was removed intact over wire. 10::48 Wire removed. 10::49 Guide catheter removed. 10:23:01 Sheath removed intact; hemostasis achieved with Exoseal to the Left Femoral artery. 10:23:18 Cordis 7Fr Exoseal opened to sterile field. 10:23:20 Procedure ended.(Physican Out) 10:23:30 Fluoroscopy time 07.70 minutes. 10:23:33 Flurop Dose total: 501 10:23:33 Fluoroscopy dose: 501 mGy 10:23:38 Contrast amount:Isovue 300 70ml. 10:23:40 Sharps counted by scrub and verified by R.N. 10:23:41 Insertion/operative site no bleeding no hematoma. 10:23:43 Post-op/insertion site Left Femoral artery dressed using a 4 x 4 and Tegaderm. 10:23:47 Post left femerol artery:stable, clean and dry 10:24:49 Post Procedure Pulses reassessed and unchanged 10:24:54 Post-procedure physical assessment completed. ASA score P 2 - A patient with mild systemic disease as per Freddy Tobar MD. 10:24:57 Post procedure rhythm: unchanged. 10:24:59 Estimated blood loss: 10 ml 10:25:00 Post procedure instruction explained to patient.Patient verbalizes understanding. 10:25:00 Patient needs reinforcement of post procedure teaching. 10:25:15 Procedure type changed to Cath procedure, PCI procedure, Coronary Stent Initial, Miscellaneous Procedures, Moderate Sedation up to 30 minutes 10:25:20 Procedure Complication : No complications 10:25:22 See physician's report for complete and final results. 10:26:14 Procedure and supply charges have been captured, reviewed, submitted and are correct. 10:28:05 Vital chart was stopped 10:28:08 Report given to Pre/Post Procedure Room. 10:28:10 Patient transfered to Pre/Post Procedure Room with Stretcher. 10:28:20 Procedure ended. 10:28:20 Full Disclosure recording stopped 10:28:23 End room use (Document Last) Intervention Summary Intervention Notes Time ActionType Lesion and Equipment Action# Pressure Duration Attributes Used 10:15:52 Discard Derrek OTW Stent 3.0 x 12 stent 10:18:12 Inflate Mid RCA Mozec Rx 1 17 00:11 balloon 3.0 x 14 balloon 10:18:36 Reinflate Mid RCA Mozec Rx 2 17 00:06 balloon 3.0 x 14 balloon 10:22:32 Place stent Mid RCA Derrek OTW 3 17 00:05 3.0 x 12 stent Device Usage Item Name Manufacture Quantity Catalog Number Hospital Part [facility] nimal Lot# / Charge Number Stock Stock Serial# Code Acist Acist 1 [id number] 055233 021864 [id number] 20 Syringe Medical Systems Inc Acist Hand Acist 1 77640 037976 329762 241716 5 Control Medical Systems Inc Bag Microtek 1 2002S 056875 06408 948520 5 Studio Publishing Inc. Medline Cardinal 1 [id number] 564889 05360 811003 5 Redfern Integrated Optics Terumo 6Fr Terumo 1 [id number] 169022 201224 368750 [address] Randal 1 [id number] 642658 359416 727197 30 260cm J .035 wire Merit Merit 1 [id number] 428230 555186 517099 15 Liquipel Medical Inflation Kit Acist Acist 1 85877 723584 999322 883085 5 5o9 Medical Systems Inc Tegaderm 4 3M 1 1626W 426668 520442 303963 5 x 4 Iqbal Iqbal 1 [id number] 477003 249773 898852 5 Whisper J Vascular 300cm 0.014 guide wire Medtronic Medtronic 1 [id number] 717807 822754 349201 0 Launcher 7Fr AR 2.0 guide catheter [place] Sci Lak[place]ore 2 [id number] 126437 391508 563044 5 Choice PT Scientific Extra Support J 300cm .014 gu Derrek OTW Medtronic 1 [id number] 007622 037771 522021 5 [id number] 3.0 x 12 stent Mozec Rx Cardinal 1 [id number] 488225 [id number] 903346 5 UMOA71 3.0 x 14 Health balloon Cordis 7Fr Cardinal 1 EX700 075451 329779 237532 5 Spinzo Health Signature Audit [place] Stage Time Signature Unsigned Intra-Procedure 05/16/2017 Allyson 10:29:16 AM Counts RT(R) Signatures Monitor : Allyson Signature : Counts RT Date : Time : [address] [place] [address]
--- NOTE | ~2017-05-16 | OP ---
PATIENT NAME: MEHUL AZEVEDO MEDICAL RECORD: [id number] :59 LOCATION:D.CAT ADMISSION DATE: SURGEON: ALFA PLUNKETT MD DATE OF OPERATION: 05/16/2017 PROCEDURES: 1. PTCA stent to RCA. 2. Selective coronary angiography. INDICATION: Angina and coronary artery disease. PROCEDURE IN DETAIL: After informed consent was obtained and after detailed explanation of risks, benefits as well as alternative therapies, the patient elected to proceed with angiogram and angioplasty. The left femoral area was prepped and draped in normal sterile fashion. Left femoral artery was cannulated via modified Seldinger technique with placement of 7-Welsh sheath. All catheters were exchanged through this sheath. FINDINGS: The right coronary has an 80% stenosis in the mid vessel. This was addressed with a 3.0 x 12 mm Derrek. Result was 0% residual stenosis. OVERALL IMPRESSION: Successful percutaneous transluminal coronary angioplasty stent of the right coronary going from 70% to 80% initial stenosis to 0% residual stenosis. TRANSINT:[id number] Voice Confirmation ID: [id number] DOCUMENT ID: [id number] ALFA PLUNKETT MD CC: [id number] DICTATION DATE: 05/16/17 1025 REVENUE COLLECTOR: 05/16/17 1215 [facility] [address] [id number]
--- NOTE | ~2017-05-16 | HP ---
PATIENT: MEHUL AZEVEDO MEDICAL RECORD: [id number] ACCOUNT: [id number] LOCATION:[facility] : 59 ADMISSION DATE: 05/16/17 HISTORY AND PHYSICAL EXAMINATION ADMITTING DIAGNOSES: 1. Angina. 2. Coronary artery disease. 3. Recent percutaneous transluminal coronary angioplasty stent to left anterior descending with concomitant disease RCA. HISTORY OF PRESENT ILLNESS: This is a gentleman, who presents with anginal symptomatology, found to have significant disease of the RCA and LAD, underwent successful PTCA stent of the LAD. He is now brought back for PTCA stent of the RCA. PHYSICAL EXAMINATION: GENERAL APPEARANCE: Well-nourished, well-developed, appears stated age. Level of distress, comfortable. PSYCHIATRIC: Mental status, alert, normal affect. Orientation, oriented to time, place and person. EYES: Lids and conjunctiva, noninjected. No discharge, no pallor. ENT: Lips, teeth, gums, normal dentition. Oropharynx, no cyanosis, no pallor. NECK: Carotid arteries, bilateral normal upstroke, no bruits, no thrills. JUGULAR VEINS: No jugular venous pressure or distention. CERVICAL LYMPH NODES: Nontender, nonenlarged. THYROID: Not enlarged. Nontender. No nodules. LUNGS: Respiratory effort, unlabored. CHEST: Normal curvature. No thoracic deformity. No chest wall tenderness. Percussion, resonant. Auscultation, clear. No wheezes, no rales, no rhonchi. CARDIOVASCULAR: Precordial exam, nondisplaced. No heaves or pericardial thrills. Rate and rhythm, regular. Heart sounds, normal S1, normal S2. No S3, no gallop, no rub. Systolic murmur, not heard. Diastolic murmur, not heard. EXTREMITIES: No cyanosis, no edema. Peripheral pulses, full and equal in all extremities, except as noted. No bruits appreciated. ABDOMEN: Soft, nondistended. Normal aorta. No bruit. Nontender. No masses. Liver, nontender, no hepatomegaly. Spleen, nontender, no splenomegaly. MUSCULOSKELETAL: No joint tenderness. No joint swelling. No erythema. NEUROLOGICAL: Normal gait, normal strength, normal tone. SKIN: Warm and dry. REVIEW OF SYSTEMS: The patient reports easy bruising but reports no swollen glands. The patient reports no fever, no night sweats, no significant weight gain, no significant weight loss. No significant exercise tolerance. The patient reports no dry eyes, no irritation, no vision change. Patient reports no difficulty hearing and no ear pain. Patient reports no frequent nose bleeds or nose and sinus problems. Patient reports on arm pain on exertion. No shortness of breath while lying down. No history of heart murmur. Patient reports no cough, no wheezing or coughing up blood. Patient reports no abdominal pain, no vomiting. Normal appetite. No diarrhea and not vomiting blood. No nausea and no constipation. Patient reports no incontinence. No difficulty urinating. No hematuria. No increased frequency. Patient reports no muscle aches. No weakness, no arthralgias, no back pain. No swelling of the extremities. Patient reports no abnormal mole, no jaundice, no rashes. Reports no loss of consciousness. No weakness and no numbness. No seizures, dizziness, HISTORY AND PHYSICAL [id number] GRAVES,MEHUL POLA or headaches. The patient reports no depression, no sleep disturbance, feeling safe in a relationship and no alcohol abuse. Patient reports on fatigue. Reports no runny nose or sinus pressure. No itching, no hives, and no frequent sneezing. OVERALL IMPRESSION: Anginal symptomatology. We will proceed with percutaneous transluminal coronary angioplasty stent of the right coronary artery. TRANSINT:[id number] Voice Confirmation ID: [id number] DOCUMENT ID: [id number] ALFA PLUNKTET MD CC: [id number] DICTATION DATE: 05/16/17 0943 [employer] MANAGER: 05/16/17 1005 [facility] [address] [place] [address]
[~2017-05-16 07:35] MED LIST changes: +ASPIRIN81 MG PO; +FENOFIBRATE160 MG PO; +LOMOTIL TABLET1 TAB PO; +PLAVIX75 MG PO
[2017-05-16 08:52] VITALS: BP 160/79; Ht 167.6 cm; Wt 75.0 kg
[2017-05-16 09:17] LABS: BASOPHILS 0.2 % (0-2); EOSINOPHILS 1.2 % (0-7); HEMATOCRIT 31.2 % (42.0-54.0); HEMOGLOBIN 9.6 g/dL (13.5-17.5); IMMATURE GRANULOCYTES 0.5 % (0-5); LYMPHOCYTES 12.8 % (15-50); MCH 29.4 pg (26.0-34.0); MCHC 30.8 g/dL (31.0-37.0); MCV 95.7 fL (80.0-100.0); MEAN PLATELET VOLUME 10.6 fL (7.4-10.4); MONOCYTES 6.7 % (2-11); NEUTROPHILS 78.6 % (40-80); PLATELET COUNT 85 10x3/uL (130-400); RBC 3.26 10x6/uL (4.20-6.10); RDW 17.6 % (11.5-14.5); WBC 8.1 10x3/uL (4.8-10.8)
[2017-05-16 09:45] LABS: ANION GAP 17.5 mmol/L (8-16); CALCIUM 8.7 mg/dL (8.5-10.1); CREATININE - SERUM 8.8 mg/dL (0.6-1.3); POTASSIUM - SERUM 5.5 mmol/L (3.5-5.1)
--- NOTE | 2017-05-16 10:45 | NUR ---
RECIEVED TO ROOM VIA STRETCHER FROM CONDOMINIUM PROPERTY MANAGER WITH 6 FR EXOSEAL L/GROIN CDI NO BLEEDING NO HEMATOMA NOTED. HR 64 CHEST PAIN DENIED BP 164/75 O2 AT 2 LITERS NASAL SAT 98%. INSTRUCTED PATIENT TO KEEP HEAD FLAT ON PILLOW WITH LLE STRAIGHT
--- NOTE | 2017-05-16 10:55 | NUR ---
L/GROIN CDI NO BLEEDING NO HEMATOMA NOTED CHEST PAIN IS DENIED. AT SIDE
--- NOTE | 2017-05-16 11:27 | NUR ---
RESTING QUIETLY WITH NO DISTRESS VSS WITH 6 FR EXOSEAL L/GROIN CDI NO BLEEDING NO HEMATOMA NOTED
--- NOTE | 2017-05-16 11:40 | NUR ---
NO CHANGE IN ASSESSMENT PATIENT CONTINUES TO SLEEP WITH VSS. L/GROIN CDI
--- NOTE | 2017-05-16 12:04 | NUR ---
HR 66 BP167/75 O2 AT 2 LITERS NASAL. 6 FR EXOSEAL L/GROIN CDI NO BLEEDING NO HEMATOMA NOTED
--- NOTE | 2017-05-16 12:52 | NUR ---
L/GROIN REMAINS CDI NO BLEEDING NO HEMATOMA NOTED. PATIENT COMPLAINS OF DISCOMFORT TO BACK. REPOSITIONED WITH PILLOW TO ELEVATE. SANDWICH AND JUICE TO BEDSIDE
--- NOTE | 2017-05-16 13:28 | NUR ---
RESTING QUIETLY NO DISTRESS NO COMPLAINTS. L/GROIN CDI NO BLEEDING NO HEMATOMA NOTED. FAMILY AT SIDE
--- NOTE | 2017-05-16 14:01 | NUR ---
L/GROIN REMAINS STABLE NO BLEEDING NO HEMATOMA NOTED. REPOSITIONED TO SITTING WITH HOB UP 30 DEGREES FOR COMFORT CHEST PAIN IS DENIED
--- NOTE | 2017-05-16 14:33 | NUR ---
PIV REMOVED WITH DRESSING APPLIED. CHEST PAIN IS DENIED VSS. 6 FR EXOSEAL L/GROIN CDI NO BLEEDING NO HEMATOMA NOTED. PATIENT UP TO GET DRESSED FOR DISCHARGE HOME
--- NOTE | 2017-05-16 14:42 | NUR ---
VERBAL AND WRITTEN DISCHARGE GONE OVER WITH PATIENT AND BOTH VERBALZIED UNDERSTANDING. L/GROIN REMIANS CDI WITH CHEST PAIN DENIED. TRANSPORTED VIA WC TO PARKING FOR TO DRIVE HOME
== END | disposition home or self-care (01) ==
LOC: D.CATH 07:12
PROVIDERS: Internal Medicine Interventional Cardiology
DX: I25.119 Atherosclerotic heart disease of native coronary artery with unspecified angina pectoris (principal); Z95.5 Presence of coronary angioplasty implant and graft; Z01.812 Encounter for preprocedural laboratory examination

== ENCOUNTER 2017-05-19 18:11 | Inpatient (IN) | payer MEDICARE ==
[2017-05-19 19:23] LABS: APTT 40.7 SECONDS (22.8-39.4); BASOPHILS 0.5 % (0-2); EOSINOPHILS 1.5 % (0-7); IMMATURE GRANULOCYTES 0.3 % (0-5); INR 1.1 (0.85-1.17); LYMPHOCYTES 19.1 % (15-50); MCH 28.7 pg (26.0-34.0); MCV 95.6 fL (80.0-100.0); MEAN PLATELET VOLUME 10.9 fL (7.4-10.4); MONOCYTES 4.9 % (2-11); NEUTROPHILS 73.7 % (40-80); PLATELET COUNT 79 10x3/uL (130-400); PROTIME 14.1 SECONDS (11.6-15.0); RBC 2.51 10x6/uL (4.20-6.10); RDW 17.4 % (11.5-14.5)
[2017-05-19 19:27] LABS: HEMOGLOBIN 7.2 g/dL (13.5-17.5)
[2017-05-19 19:28] LABS: ALBUMIN 2.3 g/dL (3.4-5.0); ANION GAP 11.3 mmol/L (8-16); BILIRUBIN - TOTAL 0.35 mg/dL (0.2-1.3); CALCIUM 9.3 mg/dL (8.5-10.1); CREATININE - SERUM 7.6 mg/dL (0.6-1.3); POTASSIUM - SERUM 5.3 mmol/L (3.5-5.1); PROTEIN - SERUM 6.6 g/dL (6.4-8.2)
--- NOTE | 2017-05-20 02:32 | NUR ---
PT IN BED RESTING EVEN AND UNLABORED RESPIRATIONS NOTED WILL CONTINUE TO MONITOR
[2017-05-20 04:00] VITALS: BP 160/70
[2017-05-20 06:10] LABS: BASOPHILS 0.3 % (0-2); EOSINOPHILS 1.9 % (0-7); HEMATOCRIT 27.7 % (42.0-54.0); IMMATURE GRANULOCYTES 0.3 % (0-5); LYMPHOCYTES 19.1 % (15-50); MCH 29.7 pg (26.0-34.0); MCHC 32.5 g/dL (31.0-37.0); MEAN PLATELET VOLUME 11.4 fL (7.4-10.4); MONOCYTES 3.2 % (2-11); NEUTROPHILS 75.2 % (40-80); PLATELET COUNT 77 10x3/uL (130-400); RDW 17.7 % (11.5-14.5); WBC 6.2 10x3/uL (4.8-10.8)
[2017-05-20 06:25] LABS: MCV 91.4 fL (80.0-100.0); RBC 3.03 10x6/uL (4.20-6.10)
--- NOTE | 2017-05-20 07:30 | NUR ---
REPORT RECIEVED. PT RESTING QUILETY, FAMILY AT BEDSIDE. RR EVEN AND UNLABORED. FAMILY EXPRESSING CONCERN REGARDING PT NOT GETTING DIALYSIS YET. WILL FOLLOW UP ON CONCERNS. ASSESSMENT PERFORMED, WILL CTM.
--- NOTE | 2017-05-20 10:00 | NUR ---
SPOKE TO KRISTA KRISHNAMURTHY AT [facility]. GAVE SEVERAL TELEPHONE ORDERS FOR PT. WILL ENTER ORDERS, COMPLETE AND CTM.
[2017-05-20 12:00] VITALS: BP 153/84
[2017-05-20 14:10] VITALS: Ht 167.6 cm
[2017-05-20 14:32] LABS: BASOPHILS 0.3 % (0-2); HEMATOCRIT 28.8 % (42.0-54.0); HEMOGLOBIN 9.3 g/dL (13.5-17.5); IMMATURE GRANULOCYTES 0.3 % (0-5); LYMPHOCYTES 11.3 % (15-50); MCH 29.5 pg (26.0-34.0); MCHC 32.3 g/dL (31.0-37.0); MCV 91.4 fL (80.0-100.0); MEAN PLATELET VOLUME 10.9 fL (7.4-10.4); MONOCYTES 4.5 % (2-11); NEUTROPHILS 82.6 % (40-80); PLATELET COUNT 77 10x3/uL (130-400); RBC 3.15 10x6/uL (4.20-6.10); RDW 17.9 % (11.5-14.5); WBC 6.3 10x3/uL (4.8-10.8)
--- NOTE | 2017-05-20 16:30 | NUR ---
FFP THERAPY INITIATED TO GRAVITY. VSS, RR EVEN AND UNLABORED. PT DENIES NEEDS AT THIS TIME. EDUCATED ON S/S OF TRANSFUSION REACTION AND TO REPORT ANY S/S. WILL CTM VS AND PT CONDITION.
[2017-05-20 17:54] VITALS: BP 105/65
--- NOTE | 2017-05-20 18:30 | NUR ---
PT RESTING QUILETY, RR EVEN AND UNLAOBRED. PLASMA HAD NOT BEEN INFSUING DUE TO POSTION OF IV. ADJUSTED IV AND PLASMA IS NOW RUNNING TO GRAVITY. WILL CTM AND GIVE REPORT ON PT CONDITON FOR THE DAY.
--- NOTE | 2017-05-20 19:31 | NUR ---
PT IN BED WATCHING TELEVISION. DENIES NEEDS AT THIS TIME. WILL CONTINUE TO MONITOR.
[2017-05-20 19:39] LABS: BASOPHILS 0.3 % (0-2); HEMATOCRIT 26.9 % (42.0-54.0); HEMOGLOBIN 8.6 g/dL (13.5-17.5); IMMATURE GRANULOCYTES 0.4 % (0-5); LYMPHOCYTES 12.6 % (15-50); MCH 29.5 pg (26.0-34.0); MCV 92.1 fL (80.0-100.0); MEAN PLATELET VOLUME 10.8 fL (7.4-10.4); MONOCYTES 5.3 % (2-11); NEUTROPHILS 80.4 % (40-80); PLATELET COUNT 78 10x3/uL (130-400); RBC 2.92 10x6/uL (4.20-6.10); RDW 17.8 % (11.5-14.5); WBC 7.2 10x3/uL (4.8-10.8)
[2017-05-20 20:00] VITALS: BP 116/84
[2017-05-21] VITALS: BP 134/56
--- NOTE | 2017-05-21 00:19 | NUR ---
PT RESTING WITH EYES CLOSED. RESP EVEN AND REGULAR. SR UP X2, CALL LIGHT WITHIN REACH.
[2017-05-21 01:21] LABS: BASOPHILS 0.2 % (0-2); EOSINOPHILS 0.9 % (0-7); HEMATOCRIT 26.7 % (42.0-54.0); HEMOGLOBIN 8.5 g/dL (13.5-17.5); IMMATURE GRANULOCYTES 0.3 % (0-5); MCH 29.4 pg (26.0-34.0); MCHC 31.8 g/dL (31.0-37.0); MCV 92.4 fL (80.0-100.0); MEAN PLATELET VOLUME 10.8 fL (7.4-10.4); MONOCYTES 6.8 % (2-11); NEUTROPHILS 77.8 % (40-80); PLATELET COUNT 80 10x3/uL (130-400); RBC 2.89 10x6/uL (4.20-6.10); RDW 17.7 % (11.5-14.5); WBC 6.5 10x3/uL (4.8-10.8)
[2017-05-21 04:00] VITALS: BP 135/76
[2017-05-21 05:53] LABS: BASOPHILS 0.6 % (0-2); EOSINOPHILS 0.9 % (0-7); HEMOGLOBIN 8.6 g/dL (13.5-17.5); IMMATURE GRANULOCYTES 0.3 % (0-5); MCH 29.8 pg (26.0-34.0); MCHC 31.9 g/dL (31.0-37.0); MCV 93.4 fL (80.0-100.0); MEAN PLATELET VOLUME 11.1 fL (7.4-10.4); MONOCYTES 4.9 % (2-11); NEUTROPHILS 76.3 % (40-80); PLATELET COUNT 82 10x3/uL (130-400); RBC 2.89 10x6/uL (4.20-6.10); WBC 6.6 10x3/uL (4.8-10.8)
--- NOTE | 2017-05-21 07:38 | NUR ---
AM ROUNDS - PT IN BED RECIEVING A RESP TREATMENT. BED AT LOWEST POSITION. CALL WRIGHT IN REACH. SIDE RAILS UP X2. RIGHT AC WITH PROTONIX AT 10CC/HR. PT IS NPO FOR A PROCEDURE. LEFT ARM RESERVE, AVF. NO NEEDS AT THIS TIME. WILL CONTINUE TO MONITOR
[2017-05-21 08:10] VITALS: BP 159/69
--- NOTE | 2017-05-21 09:21 | NUR ---
PT HAS BEEN PREOPED. PT LEFT FLOOR VIA BED WITH GI STAFF.
--- NOTE | 2017-05-21 10:21 | NUR ---
PT RETURNED TO FLOOR VIA BED FROM A PROCEDURE. V/S SET UP FOR POST OP. WILL CONTINUE TO MONITOR
[2017-05-21 12:25] LABS: BASOPHILS 0.6 % (0-2); HEMATOCRIT 28.6 % (42.0-54.0); IMMATURE GRANULOCYTES 0.6 % (0-5); LYMPHOCYTES 11.3 % (15-50); MCH 29.2 pg (26.0-34.0); MCHC 31.5 g/dL (31.0-37.0); MCV 92.9 fL (80.0-100.0); MEAN PLATELET VOLUME 10.8 fL (7.4-10.4); MONOCYTES 5.8 % (2-11); NEUTROPHILS 80.7 % (40-80); PLATELET COUNT 89 10x3/uL (130-400); RBC 3.08 10x6/uL (4.20-6.10); RDW 18.1 % (11.5-14.5); WBC 6.2 10x3/uL (4.8-10.8)
[2017-05-21 12:35] LABS: ANION GAP 13.9 mmol/L (8-16); CALCIUM 8.9 mg/dL (8.5-10.1); CARBON DIOXIDE 25.6 mmol/L (21.0-32.0); CREATININE - SERUM 6.3 mg/dL (0.6-1.3)
[2017-05-21 12:44] LABS: POTASSIUM - SERUM 4.5 mmol/L (3.5-5.1)
--- NOTE | 2017-05-21 15:12 | NUR ---
PT IN BED WITH NO NEEDS AT THIS TIME. WILL CONTINUE TO MONITOR
[2017-05-21 15:39] VITALS: BP 154/79
[2017-05-21 18:30] LABS: BASOPHILS 0.6 % (0-2); EOSINOPHILS 1.1 % (0-7); HEMATOCRIT 26.1 % (42.0-54.0); HEMOGLOBIN 8.1 g/dL (13.5-17.5); IMMATURE GRANULOCYTES 1.1 % (0-5); LYMPHOCYTES 11.9 % (15-50); MCV 93.5 fL (80.0-100.0); MEAN PLATELET VOLUME 10.8 fL (7.4-10.4); MONOCYTES 8.3 % (2-11); PLATELET COUNT 93 10x3/uL (130-400); RBC 2.79 10x6/uL (4.20-6.10); RDW 17.7 % (11.5-14.5); WBC 6.6 10x3/uL (4.8-10.8)
--- NOTE | 2017-05-21 19:36 | NUR ---
PT IN BED WATCHING TELEVISION. DENIES NEEDS AT THIS TIME. WILL CONTINUE TO MONITOR.
[2017-05-21 20:32] VITALS: BP 156/71
[2017-05-22 01:18] VITALS: BP 149/68
[2017-05-22 05:55] VITALS: BP 167/78
[2017-05-22 06:09] LABS: BASOPHILS 0.6 % (0-2); EOSINOPHILS 1.7 % (0-7); HEMATOCRIT 29.6 % (42.0-54.0); HEMOGLOBIN 9.2 g/dL (13.5-17.5); IMMATURE GRANULOCYTES 0.4 % (0-5); LYMPHOCYTES 14.6 % (15-50); MCH 29.1 pg (26.0-34.0); MCHC 31.1 g/dL (31.0-37.0); MCV 93.7 fL (80.0-100.0); MEAN PLATELET VOLUME 10.6 fL (7.4-10.4); MONOCYTES 4.9 % (2-11); NEUTROPHILS 77.8 % (40-80); PLATELET COUNT 105 10x3/uL (130-400); RBC 3.16 10x6/uL (4.20-6.10); RDW 17.7 % (11.5-14.5); WBC 7.2 10x3/uL (4.8-10.8)
[2017-05-22 06:16] LABS: INR 1.09 (0.85-1.17); PROTIME 13.9 SECONDS (11.6-15.0)
[2017-05-22 06:26] LABS: ALBUMIN 2.8 g/dL (3.4-5.0); ANION GAP 14.6 mmol/L (8-16); BILIRUBIN - TOTAL 0.63 mg/dL (0.2-1.3); CALCIUM 9.2 mg/dL (8.5-10.1); CARBON DIOXIDE 24.7 mmol/L (21.0-32.0); CREATININE - SERUM 7.7 mg/dL (0.6-1.3); POTASSIUM - SERUM 4.3 mmol/L (3.5-5.1); PROTEIN - SERUM 7.5 g/dL (6.4-8.2)
[2017-05-22 08:05] VITALS: BP 158/69
--- NOTE | 2017-05-22 08:18 | NUR ---
AM ROUNDS - PT IN BED AND AWAKE AT THIS TIME. PT IS RA. IV TO RIGHT HAND, SL AND R AC, SL. RESERVE LEFT ARM, AVF. WIFR AT BEDISDE. BED AT LOWEST POSITION. CALL WRIGHT IN REACH. SIDE RAILS UP X2. WILL CONTINUE TO MONITOR
[2017-05-22] MEDS ORDERED: PROTONIX40 MG PO (09:06)
[2017-05-22] MEDS ORDERED: CARAFATE1 G/10 ML PO (09:07)
--- NOTE | 2017-05-22 14:23 | NUR ---
WRITTEN AND VERBAL D/C INSTRUCTIONS GIVEN TO PT AND . IV TO RIGHT AC AND RIGHT HAND D/C, CATH TIP INTACT. 2X2 DRESSING APPLIED AND SECURED WITH TAPE. PT LEFT FLOOR VIA WHEELCHAIR BY STAFF MEMBER. WILL D/C
== END 2017-05-22 14:30 | disposition home or self-care (01) | DRG 377 ==
LOC: D.ER 18:11 → D.M2 20:31
PROVIDERS: Emergency Medicine; Internal Medicine Gastroenterology; ADMIT Internal Medicine
PROC: 5A1D00Z (ICD-10-PCS; 2017-05-20)
PROC: 0DJ08ZZ Inspection of Upper Intestinal Tract, Via Natural or Artificial Opening Endoscopic (ICD-10-PCS; principal; 2017-05-21 10:00)
DX: K29.01 Acute gastritis with bleeding (principal); N18.6 End stage renal disease; K22.10 Ulcer of esophagus without bleeding; K76.6 Portal hypertension; I13.2 Hypertensive heart and chronic kidney disease with heart failure and with stage 5 chronic kidney disease, or end stage renal disease; K44.9 Diaphragmatic hernia without obstruction or gangrene; K25.4 Chronic or unspecified gastric ulcer with hemorrhage; K31.89 Other diseases of stomach and duodenum; K29.80 Duodenitis without bleeding; D69.6 Thrombocytopenia, unspecified; I50.9 Heart failure, unspecified; Z99.2 Dependence on renal dialysis; D64.9 Anemia, unspecified; I25.10 Atherosclerotic heart disease of native coronary artery without angina pectoris; K74.60 Unspecified cirrhosis of liver; Z79.01 Long term (current) use of anticoagulants; Z86.73 Personal history of transient ischemic attack (TIA), and cerebral infarction without residual deficits; Z95.5 Presence of coronary angioplasty implant and graft; Z72.0 Tobacco use

== ENCOUNTER → 2017-06-15 08:00 | Outpatient (CLI) | payer MEDICARE ==
[~2017-06-15 08:00] MED LIST changes: +CARAFATE1 G/10 ML PO; +PROTONIX40 MG PO
== END | disposition home or self-care (01) ==
LOC: D.RAD 08:00
DX: D64.9 Anemia, unspecified (principal); K25.9 Gastric ulcer, unspecified as acute or chronic, without hemorrhage or perforation

== ENCOUNTER 2017-06-24 08:33 | Outpatient (CLI) | payer MEDICARE ==
[2017-06-24 09:31] LABS: HEMATOCRIT 25.6 % (42.0-54.0); HEMOGLOBIN 7.7 g/dL (13.5-17.5)
[2017-06-24 10:10] VITALS: BMI 26.7
--- NOTE | 2017-06-24 10:19 | NUR ---
#20 GUAGE IV STARTED X 1 STICK IN RIGHT WRIST.
--- NOTE | 2017-06-24 15:49 | NUR ---
1545 REPORT FROM [facility]END[facility]. PATIENT RECEIVING BLOOD. NO S/S OF BLOOD REACTIONS NOTED. IV 20 GAUGE IN RT WRIST NO REDNESS OR SWELLING. 1600 BLOOD COMPLETED FLUSHING WITH NORMAL SALINE.
--- NOTE | 2017-06-24 17:12 | NUR ---
1605 BLOOD FLUSHED THROUGH LINE. IV DCD CATHETER INTACT APPLIED BANDAID AND PRESSURE HELD 2 MINUTES. NO S/S OF BLOOD REACTIONS NOTED.
--- NOTE | 2017-06-24 17:13 | NUR ---
1700 REFUSED FOOD. NO S/S OF BLOOD REACTIONS NOTED. DISCHARGE INSTRUCTIONS GIVEN AND TOLD ABOUT BLOOD TRANSFUSION REACTIONS AND WENT OVER SHEET WITH PATIENT AND FAMILY MEMBER. 1705 LEFT VIA AMBULATED.
== END 2017-06-24 17:05 | disposition home or self-care (01) ==
LOC: D.OPS 08:33
PROVIDERS: Internal Medicine Nephrology
DX: D64.9 Anemia, unspecified (principal)

== ENCOUNTER 2018-06-14 10:09 | Emergency (ER) | payer MEDICARE ==
[~2018-06-14] VITALS: Ht 167.6 cm; Wt 68.2 kg
[2018-06-14 10:14] VITALS: Ht 167.6 cm; Wt 68.2 kg
[2018-06-14] MEDS ORDERED: NORVASC5 MG PO (10:15)
[2018-06-14 10:57] LABS: BASOPHILS 0.2 % (0-2); EOSINOPHILS 2.1 % (0-7); HEMATOCRIT 32.7 % (42.0-54.0); HEMOGLOBIN 10.2 g/dL (13.5-17.5); IMMATURE GRANULOCYTES 0.4 % (0-5); LYMPHOCYTES 10.5 % (15-50); MCH 32.7 pg (26.0-34.0); MCHC 31.2 g/dL (31.0-37.0); MCV 104.8 fL (80.0-100.0); MEAN PLATELET VOLUME 12.4 fL (7.4-10.4); MONOCYTES 7.1 % (2-11); NEUTROPHILS 79.7 % (40-80); RBC 3.12 10x6/uL (4.20-6.10); WBC 5.2 10x3/uL (4.8-10.8)
[2018-06-14 11:01] LABS: PLATELET COUNT 45 10x3/uL (130-400)
[2018-06-14 11:13] LABS: ALKALINE PHOSPHATASE 99 U/L (46-116); ALT (SGPT) 14 U/L (10-68); BILIRUBIN - TOTAL 0.35 mg/dL (0.2-1.3); CALC OSMOLALITY 293 mosm/kg (275-300); CALCIUM 9.6 mg/dL (8.5-10.1); CARBON DIOXIDE 30.5 mmol/L (21.0-32.0); CHLORIDE - SERUM 100 mmol/L (98-107); CREATININE - SERUM 8.2 mg/dL (0.6-1.3); GLUCOSE 111 mg/dL (74-106); POTASSIUM - SERUM 4.3 mmol/L (3.5-5.1); PROTEIN - SERUM 7.1 g/dL (6.4-8.2); SODIUM 138 mmol/L (136-145); UREA NITROGEN 60 mg/dL (7-18); eGFR NON AFRICAN AMERICAN 7 mL/min (90-120)
[2018-06-14 11:16] LABS: AMYLASE - SERUM 57 U/L (25-115); LIPASE 174 U/L (73-393); TROPONIN-I < 0.017 ng/mL (0.000-0.060)
[2018-06-14 11:36] LABS: PLATELET ESTIMATE DECREASED
[2018-06-14] MEDS ORDERED: ZOFRAN4 MG PO (11:50)
[2018-06-14] MEDS ORDERED: OMNICEF300 MG PO (11:50)
[2018-06-14 12:07] VITALS: BP 164/82
== END 2018-06-14 12:08 | disposition home or self-care (01) ==
LOC: D.ER 10:09
PROVIDERS: Family Medicine
DX: R11.2 Nausea with vomiting, unspecified (principal); D64.9 Anemia, unspecified; I25.10 Atherosclerotic heart disease of native coronary artery without angina pectoris; I12.0 Hypertensive chronic kidney disease with stage 5 chronic kidney disease or end stage renal disease; N18.6 End stage renal disease; Z99.2 Dependence on renal dialysis; R05 Cough; D69.6 Thrombocytopenia, unspecified; Z86.73 Personal history of transient ischemic attack (TIA), and cerebral infarction without residual deficits; I73.9 Peripheral vascular disease, unspecified

== ENCOUNTER 2018-06-16 13:06 | Emergency (ER) | payer MEDICARE ==
[~2018-06-16] VITALS: Ht 167.6 cm; Wt 68.2 kg
[~2018-06-16 13:06] MED LIST changes: +OMNICEF300 MG PO
[2018-06-16 13:15] VITALS: Ht 167.6 cm; Wt 68.2 kg
[2018-06-16 13:52] LABS: BASOPHILS 0.3 % (0-2); EOSINOPHILS 2.2 % (0-7); HEMATOCRIT 37.5 % (42.0-54.0); HEMOGLOBIN 11.9 g/dL (13.5-17.5); IMMATURE GRANULOCYTES 0.4 % (0-5); LYMPHOCYTES 9.4 % (15-50); MCH 33.5 pg (26.0-34.0); MCHC 31.7 g/dL (31.0-37.0); MCV 105.6 fL (80.0-100.0); MEAN PLATELET VOLUME 11.5 fL (7.4-10.4); MONOCYTES 9.3 % (2-11); NEUTROPHILS 78.4 % (40-80); RBC 3.55 10x6/uL (4.20-6.10); RDW 16.5 % (11.5-14.5); WBC 6.9 10x3/uL (4.8-10.8)
[2018-06-16 13:54] LABS: PLATELET COUNT 63 10x3/uL (130-400)
[2018-06-16 14:11] LABS: ALBUMIN 3.3 g/dL (3.4-5.0); ANION GAP 15.6 mmol/L (8-16); BILIRUBIN - TOTAL 0.51 mg/dL (0.2-1.3); C-REACTIVE PROTEIN 0.5 mg/dL (0.0-0.9); CALCIUM 9.5 mg/dL (8.5-10.1); CARBON DIOXIDE 28.5 mmol/L (21.0-32.0); CREATININE - SERUM 8.2 mg/dL (0.6-1.3); POTASSIUM - SERUM 4.1 mmol/L (3.5-5.1); PROTEIN - SERUM 7.8 g/dL (6.4-8.2)
[2018-06-16 17:16] VITALS: BP 166/74
== END 2018-06-16 17:17 | disposition home or self-care (01) ==
LOC: D.ER 13:06
PROVIDERS: Family Medicine
DX: H02.402 Unspecified ptosis of left eyelid (principal); Z86.73 Personal history of transient ischemic attack (TIA), and cerebral infarction without residual deficits; I11.0 Hypertensive heart disease with heart failure; I50.9 Heart failure, unspecified; I25.10 Atherosclerotic heart disease of native coronary artery without angina pectoris; I73.9 Peripheral vascular disease, unspecified; I12.9 Hypertensive chronic kidney disease with stage 1 through stage 4 chronic kidney disease, or unspecified chronic kidney disease; N18.9 Chronic kidney disease, unspecified; Z99.2 Dependence on renal dialysis; F17.200 Nicotine dependence, unspecified, uncomplicated

== ENCOUNTER → 2018-06-20 08:18 | Outpatient (CLI) | payer MEDICARE ==
[2018-06-16 13:15] VITALS: BMI 24.2
== END | disposition home or self-care (01) ==
LOC: D.CT 08:18
DX: H49.02 Third [oculomotor] nerve palsy, left eye (principal)